=== PATIENT | female | born 1985 | race Caucasian/White ===

== ENCOUNTER 2019-09-08 10:16 | Inpatient (IN) ==
[2019-09-08] MEDS ORDERED: Oxytocin 20 units/ LR 1000 mL 20 UNIT/1,000 ML BAG IVC ONE (10:28)
[2019-09-08] MEDS ORDERED: Metoclopramide 10 MG/2 ML VIAL IVP ONE (10:28)
[2019-09-08] MEDS ORDERED: Famotidine 20 MG/2 ML VIAL IVP ONE (10:28)
[2019-09-08] MEDS ORDERED: Ringers Solution, Lactated 1,000 ML IVC ONE (10:28)
[2019-09-08] MEDS ORDERED: CeFAZolin Premix DUPLEX 2,000 MG/50 ML BAG IVPB ONE (10:28)
[2019-09-08] MEDS ORDERED: Oxytocin 20 units/ LR 1000 mL 20 UNIT/1,000 ML BAG IVC SCH ×2 (10:30→17:31)
[2019-09-08] MEDS ORDERED: Ringers Solution, Lactated 1,000 ML IVC SCH (10:30)
[2019-09-08 11:05] LABS: Basophils % 0.4 %; Eosinophils # 0.1 K/mcL (0.0-0.6); Eosinophils % 0.8 %; Hematocrit 34.9 % (35.3-44.9); Hemoglobin 11.2 g/dL (11.5-15.4); Immature Granulocytes % 0.5 % (0-4); Lymphocytes # 1.7 K/mcL (0.6-4.6); Lymphocytes % 22.3 %; Mean Corpuscular HGB Conc 32.1 g/dL (31.6-35.5); Mean Corpuscular Hemoglobin 28.8 pg (28.0-33.3); Mean Corpuscular Volume 89.7 fL (83.0-100.0); Mean Platelet Volume 8.4 fL (9.4-12.4); Monocytes # 0.6 K/mcL (0.0-1.3); Monocytes % 7.5 %; Neutrophils # 5.3 K/mcL (1.6-8.9); Platelet Count 253 K/mcL (140-400); Red Blood Count 3.89 M/mcL (3.82-4.97); Red Cell Distribution Width 14.7 % (11.5-14.5); Segmented Neutrophils % 68.5 %; White Blood Count 7.7 K/mcL (4.3-11.1)
[2019-09-08 11:14] LABS: Amphetamine Screen,Urine Negative ng/mL (Cutoff=1000); Barbiturate Screen,Urine Negative ng/mL (Cutoff=200); Benzodiazepines Screen,Urine Negative ng/mL (Cutoff=200); Cannabinoid Screen,Urine Negative ng/mL (Cutoff = 50); Cocaine Screen,Urine Negative ng/mL (Cutoff= 300); Opiate Screen,Urine Negative ng/mL (Cutoff=300); Phencyclidine Screen,Urine Negative ng/mL (Cutoff=25)
[2019-09-08] MEDS ORDERED: Ondansetron 4 MG/2 ML VIAL IVP PRN (11:34)
[2019-09-08] MEDS ORDERED: Acetaminophen IV 1,000 MG/100 ML INFUS..BTL IVPB ONE (11:34)
[2019-09-08] MEDS ORDERED: Ibuprofen 400 MG TABLET PO PRN (11:34)
[2019-09-08] MEDS ORDERED: *HR* OxyCODONE/APAP 5/325 TABLET PO PRN ×2 (11:34→17:31)
[2019-09-08] MEDS ORDERED: EPHEDrine 50 MG/ML VIAL ONE (12:13)
[2019-09-08] MEDS ORDERED: *HR* FentaNYL (PF) 100 MCG/2 ML VIAL ONE (12:13)
[2019-09-08] MEDS ORDERED: *HR* Morphine Sulfate/PF 10 MG/10 ML AMPUL ONE (12:13)
[2019-09-08] MEDS ORDERED: Ringers Solution, Lactated 1,000 ML ONE (12:14)
[2019-09-08] MEDS ORDERED: *HR* Midazolam HCl 2 MG/2 ML VIAL ONE (12:15)
[2019-09-08] MEDS ORDERED: *HR* Oxytocin 10 UNIT/ML VIAL IM ONE (12:18)
[2019-09-08] MEDS ORDERED: *HR* EPINEPHrine 1 MG/10 ML SYRINGE ONE (12:59)
[2019-09-08] MEDS ORDERED: Ketorolac 30 MG/ML VIAL ONE (14:09)
[2019-09-08] MEDS ORDERED: Ondansetron 4 MG/2 ML VIAL ONE (14:37)
[2019-09-08] MEDS ORDERED: *HR* Promethazine 25 MG/ML VIAL ONE (14:52)
[2019-09-08] MEDS ORDERED: *HR* HYDROMORPHONE 2 MG/ML VIAL ONE (15:57)
[2019-09-08] MEDS ORDERED: Sennosides 8.6 MG TABLET PO PRN (17:31)
[2019-09-08] MEDS ORDERED: Metoclopramide 10 MG/2 ML VIAL IVP PRN (17:31)
[2019-09-08] MEDS: Ondansetron 4 MG/2 ML VIAL IVP PRN (18:11)
[2019-09-08] MEDS: Acetaminophen 325 MG TABLET PO SCH (22:40)
[2019-09-08] MEDS: Simethicone 80 MG TAB.CHEW PO SCH (23:02)
[2019-09-09] MEDS: Ketorolac 30 MG/ML VIAL IVP SCH ×3 (00:08→06:12)
[2019-09-09] MEDS: Ondansetron 4 MG/2 ML VIAL IVP PRN ×2 (00:13→06:12)
[2019-09-09] MEDS: Acetaminophen 325 MG TABLET PO SCH ×3 (04:07→10:16)
[2019-09-09 09:16] LABS: Basophils % 0.2 %; Eosinophils # 0.1 K/mcL (0.0-0.6); Eosinophils % 0.4 %; Hematocrit 33.7 % (35.3-44.9); Hemoglobin 11.1 g/dL (11.5-15.4); Immature Granulocytes % 0.5 % (0-4); Lymphocytes # 0.8 K/mcL (0.6-4.6); Lymphocytes % 6.8 %; Mean Corpuscular HGB Conc 32.9 g/dL (31.6-35.5); Mean Corpuscular Hemoglobin 29.4 pg (28.0-33.3); Mean Corpuscular Volume 89.2 fL (83.0-100.0); Mean Platelet Volume 8.7 fL (9.4-12.4); Monocytes # 0.9 K/mcL (0.0-1.3); Monocytes % 7.1 %; Neutrophils # 10.5 K/mcL (1.6-8.9); Platelet Count 257 K/mcL (140-400); Red Blood Count 3.78 M/mcL (3.82-4.97)
[2019-09-09 09:22] LABS: White Blood Count 12.3 K/mcL (4.3-11.1)
[2019-09-09] MEDS: Prenatal Vit/FA 1 EACH TABLET PO SCH (10:16)
[2019-09-09] MEDS: Simethicone 80 MG TAB.CHEW PO SCH ×2 (10:17→20:46)
[2019-09-09] MEDS ORDERED: Ondansetron ODT 4 MG TAB.RAPDIS SL PRN (12:21)
[2019-09-09] MEDS: Ondansetron ODT 4 MG TAB.RAPDIS SL PRN ×2 (12:30→18:47)
[2019-09-09] MEDS ORDERED: Ibuprofen 600 MG TABLET PO SCH (14:00)
[2019-09-09] MEDS ORDERED: Acetaminophen 325 MG TABLET PO ONE (16:15)
[2019-09-09] MEDS ORDERED: Acetaminophen 325 MG TABLET PO PRN (16:20)
[2019-09-10] MEDS: Ondansetron ODT 4 MG TAB.RAPDIS SL PRN ×3 (00:43→13:07)
[2019-09-10 08:17] VITALS: BP 93/57
[2019-09-10] MEDS: Prenatal Vit/FA 1 EACH TABLET PO SCH (10:44)
[2019-09-10] MEDS: Simethicone 80 MG TAB.CHEW PO SCH (10:44)
[2019-09-10] MEDS: Acetaminophen 325 MG TABLET PO SCH (10:45)
== END 2019-09-10 13:10 | disposition home or self-care (01) | DRG 540 ==
LOC: SAMDAY 10:16 → 1NENULAB 10:17 → 1NENUOBS 15:16
PROVIDERS: ADMIT Obstetrics & Gynecology; ATTEND Obstetrics & Gynecology